=== PATIENT | female | born 1995 | race Caucasian/White ===

== ENCOUNTER 2023-05-27 09:44 | Emergency (ER) | payer MEDICAID, OTHER ==
[2023-05-27 10:11] VITALS: O2SAT 100
[2023-05-27] MEDS ORDERED: KETOROLAC 15 MG/ML VIAL IVP STA (10:48)
[2023-05-27] MEDS ORDERED: SUMAtriptan 6 MG/0.5 ML VIAL SUBQ STA (10:48)
[2023-05-27] MEDS ORDERED: ONDANSETRON 4 MG/2 ML VIAL IVP STA (10:48)
--- NOTE | 2023-05-27 10:58 | ED Physician Documentation ---
History of Present Illness - Stated complaint Stated Complaint: MIGRAINE,VOMITING,SHAKES - Chief complaint Chief Complaint: Neuro - History obtained from History obtained from: Patient - Additonal information Additional information: 28-year-old woman with migraines developed her typical headache last night around 9 PM and was vomiting all night and could not keep down any medications. She usually takes ibuprofen for her headaches. She denies fever or neck stiffness. It was gradual in onset. PD PAST MEDICAL HISTORY - Past Surgical History Past Surgical History: No - Present Medications Home Medications: Ambulatory Orders Medication Instructions Recorded Confirmed No Known Home Medications 05/27/23 05/27/23 - Allergies Allergies/Adverse Reactions: Allergies Allergy/AdvReac Type Severity Reaction Status Date / Time No Known Drug Allergies Allergy Verified 05/03/16 18:51 - Social History Does the pt smoke?: Yes Smoking Status: Current every day smoker Does the pt drink ETOH?: No Does the pt have substance abuse?: No - Immunizations Immunizations are current?: Yes PD ED PE NORMAL - Vitals Vital signs reviewed: Yes - General General: Alert and oriented X 3, Other (Uncomfortable and light sensitive) - HEENT HEENT: PERRL - Neck Neck: Supple, no meningeal sign, No bony TTP - Neuro Neuro: Alert and oriented X 3, roll changer 2-12 intact Eye Opening: Spontaneous Motor: Obeys Commands - Psych Psych: Normal mood Results - Vitals Vitals: Vital Signs - 24 hr 05/27/23 09:56 Temperature 36.1 C L Heart Rate 76 Respiratory 16 Rate Blood Pressure 113/85 H O2 Saturation 100 Oxygen O2 Source Room air PD Medical Decision Making - ED course ED course: the x-ray the headache is gradual in onset and similar to prior headaches. As such I doubt subarachnoid hemorrhage. There are no infectious symptoms such as fever or stiff neck to make me suspect meningitis. No carbon monoxide exposure by history. She was driving, so no sedatives, was administered IV fluids, subcu Imitrex and IV Toradol with good relief and requesting discharge. Departure - Departure Disposition: 01 Home, Self Care Clinical Impression: Migraine headache Condition: Good Record reviewed to determine appropriate education?: Yes Instructions: ED Headache Migraine Comments: Call your doctor to arrange a follow-up appointment, make the next available appointment. In the interim, return anytime if worse or if new symptoms develop. Forms: PCP List
[2023-05-27 12:22] VITALS: BP 114/65
== END 2023-05-27 12:15 | disposition home or self-care (01) ==
LOC: ED 09:44
DX: G43.909 Migraine, unspecified, not intractable, without status migrainosus (principal); F17.200 Nicotine dependence, unspecified, uncomplicated
CPT/HCPCS: 36415; 96374; 96375; 99283